=== PATIENT | male | born 1960 | race Two or more races ===

== ENCOUNTER 2018-10-03 08:44 | Emergency (ER) | payer OTHER ==
[~2018-10-03] VITALS: Ht 170.2 cm; Wt 94.3 kg
[2018-10-03 09:12] VITALS: BP 162/94
== END 2018-10-03 10:59 | disposition home or self-care (01) ==
LOC: ER 08:48
DX: G93.0 Cerebral cysts (principal); M51.36 Other intervertebral disc degeneration, lumbar region; M54.16 Radiculopathy, lumbar region; R51 Headache; G89.29 Other chronic pain; E11.9 Type 2 diabetes mellitus without complications; I10 Essential (primary) hypertension; Z76.0 Encounter for issue of repeat prescription
CPT/HCPCS: 70450; 72100; 82962; 99284; J7030

== ENCOUNTER 2019-04-14 19:39 | Emergency (ER) | payer OTHER ==
[~2019-04-14] VITALS: Ht 170.2 cm; Wt 97.1 kg
[2019-04-14] MEDS ORDERED: cloNIDine HCL 0.1 MG TAB ONE (19:48)
[2019-04-14] MEDS ORDERED: cloNIDine HCL 0.1 MG TAB PO ONE (20:00)
[2019-04-14 21:54] LABS: Basophils # (auto) 0.1 uL; Basophils % (auto) 2.1 % (0.0-2.0); Eosinophils # (auto) 0.3 uL; Hematocrit 46.1 % (41.0-53.0); Hemoglobin 15.4 g/dL (13.5-17.5); Lymphocytes # (auto) 2.4 uL; Lymphocytes % (auto) 45.1 % (10.0-50.0); Mean Corpuscular Hemoglobin 28.6 pg (28.0-32.0); Mean Corpuscular Hgb Conc. 33.5 g/dL (32.0-36.0); Mean Corpuscular Volume 85.3 fL (80.0-100.0); Monocytes # (auto) 0.4 uL; Monocytes % (auto) 7.6 % (0.0-12.0); Neutrophils # (auto) 2.1 uL; Neutrophils % (auto) 40.2 % (37.0-80.0); Nucleated Red Blood Cells % 0.2 %; Platelet Count (auto) 273 10^3/uL (140-450); Red Cell Distribution Width 13.1 % (11.8-14.3); White Blood Cell 5.3 10^3/uL (4.4-10.8)
[2019-04-14 22:15] LABS: Albumin 3.4 g/dL (3.4-5.0); Calcium 8.6 mg/dL (8.5-10.1); Magnesium 2.3 mg/dL (1.6-2.6); Potassium 3.6 mmol/L (3.5-5.1)
[2019-04-14 22:25] LABS: Bilirubin, Total 0.6 mg/dL (0.2-1.0); Total Protein 6.8 g/dL (6.4-8.2)
[2019-04-15] MEDS ORDERED: MORPHINE SULFATE 4 MG/ML SYR/VIAL IV ONE
[2019-04-15] MEDS ORDERED: ONDANSETRON HCL 4 MG/2 ML VIAL IV ONE
[2019-04-15 02:49] LABS: Urine Bacteria FEW /hpf (None Seen); Urine Blood Negative /uL (Negative); Urine Hyaline Cast FEW /lpf (0 - 2); Urine Mucus FEW (None Seen); Urine Specific Gravity 1.017 (1.001-1.035); Urine WBC 3 /hpf (0 - 3)
[2019-04-15 06:43] VITALS: BP 135/82
== END 2019-04-15 06:36 | disposition home or self-care (01) ==
LOC: ER 19:39
DX: I16.0 Hypertensive urgency (principal); I10 Essential (primary) hypertension; R51 Headache; E11.9 Type 2 diabetes mellitus without complications
CPT/HCPCS: 36415; 70450; 80053; 81001; 83735; 83880; 84484; 85025; 93005